=== PATIENT | female | born 2000 | race Caucasian/White ===

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

== ENCOUNTER 2019-04-28 12:45 | Outpatient (CLI) | payer BC ==
[~2019-04-28] VITALS: Ht 167.6 cm; Wt 228.0 kg
[~2019-04-28 12:45] MED LIST: SENO8.6T10 PO
[2019-04-28 13:04] VITALS: BP 173/79
[2019-04-28] MEDS ORDERED: PANT40TA3 PO (13:18)
[2019-04-28] MEDS ORDERED: ZANT150T40 PO (13:18)
[2019-04-28] MEDS ORDERED: REGL5TAB2 PO (13:18)
[2019-04-28] MEDS ORDERED: PREN29TA4 PO (13:18)
[2019-04-28] MEDS ORDERED: IRON325T2 PO (13:18)
[2019-04-28 13:19] VITALS: BP 149/72
--- NOTE | 2019-04-28 14:15 | IPN ---
DATE OF EVALUATION: 04/28/2019 19-year-old, (G) 2, para (P) 0-0-1-0 female, at 30-1/7 weeks gestation by ultrasound presents for evaluation of loss of fluid per vagina. She woke up at 11:30 a.m. feeling wet with a wet spot on her bed. She denies continued leaking. She denies pain. She had an occasional contraction. She called her providers at [facility], who advised her to come to [facility] due to prematurity with possible ruptured membranes. OBJECTIVE: Blood pressure 124/74, pulse 84, afebrile. She is in no apparent distress. Head and neck exam: Normal. Lungs: Clear. Heart: Regular rate and rhythm. Abdomen: Nontender, gravid. heart tones category 1. Contractions none. Sterile speculum exam: Negative fern. Negative Nitrazine. Negative pool. Cervix appears closed. Extremities: Nontender. Bedside ultrasound reveals normal amniotic fluid index, vertex, appropriately grown fetus. ASSESSMENT: 19-year-old, (G) 2, para (P) 0-0-1-0 female at 30-1/7 weeks gestation with no evidence of ruptured membranes. PLAN: Patient will be discharged from [facility]. She will followup with her providers at [facility] next week as scheduled.
== END 2019-04-28 13:50 | disposition home or self-care (01) ==
LOC: M LDO 12:45
PROVIDERS: ATTEND Specialist
DX: Z03.71 Encounter for suspected problem with amniotic cavity and membrane ruled out (principal); Z3A.30 30 weeks gestation of pregnancy
CPT/HCPCS: 59025; 76815; G0378; G0463

== ENCOUNTER → 2020-06-24 | Outpatient (CLI) | payer SELFPAY ==
[~2020-06-24] MED LIST changes: +IRON325T2 PO; +PANT40TA29 PO; +PREN29TA4 PO; +REGL5TAB2 PO; +ZANT150T40 PO
== END ==
LOC: M LABSMTC 14:18
PROVIDERS: ATTEND Pediatrics
DX: Z20.822 Contact with and (suspected) exposure to COVID-19 (principal)

== ENCOUNTER → 2020-10-31 | Outpatient (REF) | LOC: M LABSMTC 10:43 | PROVIDERS: ATTEND Pediatrics | DX: Z20.822 Contact with and (suspected) exposure to COVID-19 (principal) ==

== ENCOUNTER → 2020-11-28 | Outpatient (REF) | LOC: M LABSMTC 13:01 | PROVIDERS: ATTEND Pediatrics | DX: Z20.822 Contact with and (suspected) exposure to COVID-19 (principal) ==

== ENCOUNTER → 2021-04-26 | Outpatient (REF) | payer BC | LOC: M LAB REF 16:32 | PROVIDERS: ATTEND Physician Assistant | DX: R50.9 Fever, unspecified (principal); R05.9 Cough, unspecified ==